=== PATIENT | male | born 1995 | race American Indian/Alaskan Native ===

== ENCOUNTER 2017-08-24 22:43 | Emergency (ER) | payer OTHER ==
[2017-08-24] MEDS ORDERED: ZOFRAN ODT PO ONE (22:55)
[2017-08-24] MEDS ORDERED: TYLENOL PO ONE (22:55)
[2017-08-24] MEDS ORDERED: TYLENOL ONE (22:56)
--- NOTE | 2017-08-25 00:13 | XRay Report ---
FINAL REPORT EXAM: XR CHEST ROUTINE 2V HISTORY: cough and fever TECHNIQUE: PA and lateral views of the chest were submitted. FINDINGS: The heart size and mediastinum appear normal. The lungs are clear. Pleural fluid is not seen. The bones and soft tissues are well maintained. IMPRESSION: Within normal limits.
[2017-08-25] MEDS ORDERED: BICILLIN L-A IM ONE (01:35)
[2017-08-25] MEDS ORDERED: DECADRON IM ONE (01:36)
--- NOTE | 2017-08-25 01:40 | Emergency Department Report ---
ED ENT HPI - General Chief complaint: Upper Respiratory Infection Stated complaint: COUGH; N/V Time Seen by Provider: 08/25/17 01:21 Source: patient Mode of arrival: Ambulatory Limitations: No Limitations - History of Present Illness Initial comments: 22-year-old male presents with complaint of body aches and sore throat for 4-5 days. States he has been slightly nauseous as well. Patient is awake alert and oriented 3 not in acute distress primarily complaining of sore throat. Denies cough, subjective fevers and chills reported. Patient is fully lucid speaking in full sentences no audible wheezing or stridor. MD complaint: sore throat Onset/Timin -: days(s) Location: throat Severity: moderate Severity scale (0 -10): 6 Quality: aching Consistency: constant Worsens with: none Associated Symptoms: sore throat - Related Data Previous Rx's Medication Instructions Recorded Last Taken Type Dextromethorphan/Benzocaine 1 each PO Q6H PRN #1 box 08/25/17 Unknown Rx [Cepacol Sorethroat-Cough Rocky] Ibuprofen [Motrin] 800 mg PO Q8HR PRN #30 tablet 08/25/17 Unknown Rx Allergies Allergy/AdvReac Type Severity Reaction Status Date / Time No Known Allergies Allergy Verified 08/24/17 23:06 ED Dental HPI - General Chief complaint: Upper Respiratory Infection Stated complaint: COUGH; N/V Time Seen by Provider: 08/25/17 01:21 Source: patient Mode of arrival: Ambulatory Limitations: No Limitations - Related Data Previous Rx's Medication Instructions Recorded Last Taken Type Dextromethorphan/Benzocaine 1 each PO Q6H PRN #1 box 08/25/17 Unknown Rx [Cepacol Sorethroat-Cough Rocky] Ibuprofen [Motrin] 800 mg PO Q8HR PRN #30 tablet 08/25/17 Unknown Rx Allergies Allergy/AdvReac Type Severity Reaction Status Date / Time No Known Allergies Allergy Verified 08/24/17 23:06 ED Review of Systems ROS: Stated complaint: COUGH; N/V Other details as noted in HPI Constitutional: fever, malaise. denies: chills Eyes: denies: eye pain, eye discharge, vision change ENT: throat pain. denies: ear pain Respiratory: denies: cough, shortness of breath, wheezing Cardiovascular: denies: chest pain, palpitations Endocrine: no symptoms reported Gastrointestinal: denies: abdominal pain, nausea, diarrhea Genitourinary: denies: urgency, dysuria Musculoskeletal: denies: back pain, joint swelling, arthralgia Skin: denies: rash, lesions Neurological: denies: headache, weakness, paresthesias Psychiatric: denies: anxiety, depression Hematological/Lymphatic: denies: easy bleeding, easy bruising ED Past Medical Hx - Past Medical History Previous Medical History?: No - Surgical History Past Surgical History?: No - Social History Smoking Status: Never Smoker Substance Use Type: None - Medications Home Medications: Home Medications Medication Instructions Recorded Confirmed Last Taken Type Dextromethorphan/Benzocaine 1 each PO Q6H PRN #1 box 08/25/17 Unknown Rx [Cepacol Sorethroat-Cough Rocky] Ibuprofen [Motrin] 800 mg PO Q8HR PRN #30 tablet 08/25/17 Unknown Rx ED Physical Exam - General Limitations: No Limitations General appearance: alert, in no apparent distress - Head Head exam: Present: atraumatic, normocephalic - Eye Eye exam: Present: normal appearance, PERRL, EOMI - ENT ENT exam: Present: mucous membranes moist - Expanded ENT Exam Expanded Throat exam: Positive: tonsillar exudate (bilateral tonsillar exudates, oropharynx patent, uvula midline no peritonsillar abscess on exam) - Neck Neck exam: Present: normal inspection - Respiratory Respiratory exam: Present: normal lung sounds bilaterally. Absent: respiratory distress - Cardiovascular Cardiovascular Exam: Present: regular rate, normal rhythm. Absent: systolic murmur, diastolic murmur, rubs, gallop - GI/Abdominal GI/Abdominal exam: Present: soft, normal bowel sounds - Rectal Rectal exam: Present: deferred - Extremities Exam Extremities exam: Present: normal inspection - Back Exam Back exam: Present: normal inspection - Neurological Exam Neurological exam: Present: alert, oriented X3 - Psychiatric Psychiatric exam: Present: normal affect, normal mood - Skin Skin exam: Present: warm, dry, intact, normal color. Absent: rash ED Course Vital Signs 08/24/17 08/24/17 22:47 22:51 Temperature 100.9 F H 100.9 F H Pulse Rate 116 H 106 H Respiratory 18 18 Rate Blood Pressure 132/85 132/85 O2 Sat by Pulse 99 100 Oximetry ED Medical Decision Making - Medical Decision Making A/P: Tonsillitis/strep throat pharyngitis 1-Motrin when necessary, throat lozenges when necessary 2-empiric treatment with Bicillin 3-follow up with primary care doctor 4- vital signs stabilized before discharge, patient tolerating by mouth fluid without difficulty Critical care attestation.: If time is entered above; I have spent that time in minutes in the direct care of this critically ill patient, excluding procedure time. ED Disposition Clinical Impression: Tonsillitis Disposition: TO HOME OR SELFCARE Is pt being admited?: No Does the pt Need Aspirin: No Condition: Stable Instructions: Tonsillitis (ED), Strep Throat (ED) Prescriptions: Dextromethorphan/Benzocaine [Cepacol Sorethroat-Cough Rocky] 1 each PO Q6H PRN #1 box PRN Reason: Sore Throat Ibuprofen [Motrin] 800 mg PO Q8HR PRN #30 tablet PRN Reason: Sore Throat Referrals: [place] [Other] - 3-5 Days Forms: Accompanied Note, Work/School Release Form(ED) Time of Disposition: 01:40
[2017-08-25 02:31] VITALS: BP 107/59
== END 2017-08-25 02:31 | disposition home or self-care (01) ==
LOC: ED 22:43
DX: J03.90 Acute tonsillitis, unspecified (principal)
CPT/HCPCS: 71046; 87116; 87400; 87430; 96372; 99283; J0561; J1100; Q0162